=== PATIENT | male | born 1945 | race Caucasian/White ===

== ENCOUNTER 2018-04-17 20:19 | Emergency (ER) | payer OTHER ==
[2018-04-17 21:40] LABS: Urine Appearance Turbid
[2018-04-17] MEDS ORDERED: Levofloxacin TAB* 500 MG PO ONE (21:55)
--- NOTE | 2018-04-17 22:01 | ED ---
Sylvester Gonzalez Gabriel, scribed for Edmundo Reid MD on 04/17/18 at 2057 . GI/ HPI - HPI Summary HPI Summary: This patient is a 73 year old M presenting to [facility] accompanied by his partner with a chief complaint of urinary retention that began earlier today. Pt states he went hiking earlier and after this he began having episodes of hematuria with the last one occurring 30 minutes ago that was not a stream but instead a dribble of blood. He said he is unsure when the last time he produced only urine and states he hasnt drank much water today. The patient rates the pain 10/ 10 in severity. Patient reports diaphoresis, penile pain, SOB, and hematuria. Pt denies fever and n/v. Two weeks pt was dx with acute diverticulitis and a vesicocolic fistula and he is going to see the surgeon at the end of the week. 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 Pt sees Dr. Dotson regularly for his artificial penile sphincter and has provided his number. He is sweating and SOB secondary to pain. - History of Current Complaint Chief Complaint: EDUrogenitalProblems Time Seen by Provider: 04/17/18 20:33 Stated Complaint: ABD PAIN Hx Obtained From: Patient Onset/Duration: Started Hours Ago, Still Present Timing: Constant Severity: Mild Current Severity: Severe Pain Intensity: 10 Location of Pain: Other - bladder Additional Locations for Males: Penis Associated Signs and Symptoms: Positive: Other: - diaphoresis, penile pain, SOB , and hematuria. - Allergy/Home Medications Allergies/Adverse Reactions: Allergies Allergy/AdvReac Type Severity Reaction Status Date / Time No Known Allergies Allergy Verified 04/17/18 20:32 PMH/Surg Hx/FS Hx/Imm Hx GI History: Reports: Hx Diverticulosis - with fistula History: Reports: Hx Benign Prostatic Hyperplasia, Other Problems/ Disorders - artificial penile sphincter Neurological History: Denies: Hx CVA Infectious Disease History: No Infectious Disease History: Denies: Traveled Outside the [place] in Last 30 Days - Family History Known Family History: Positive: Hypertension Negative: Renal Disease, Seizure Disorder - Social History Lives: With Family Alcohol Use: None Hx Substance Use: No Substance Use Type: Reports: None Hx Tobacco Use: No Smoking Status (MU): Never Smoked Tobacco Review of Systems Positive: Skin Diaphoresis Positive: Shortness Of Breath Positive: hematuria, pain, urgency, other - retention All Other Systems Reviewed And Are Negative: Yes Physical Exam - Summary Physical Exam Summary: VITAL SIGNS: Reviewed. GENERAL: Patient is a well-developed and nourished male who is acute pain distress HEAD AND FACE: No signs of trauma. No ecchymosis, hematomas or skull depressions. No sinus tenderness. EYES: PERRLA, EOMI x 2, No injected conjunctiva, no nystagmus. EARS: Hearing grossly intact. Ear canals and tympanic membranes are within normal limits. MOUTH: Oropharynx within normal limits. NECK: Supple, trachea is midline, no adenopathy, no JVD, no carotid bruit, no c- spine tenderness, neck with full ROM. CHEST: Symmetric, no tenderness at palpation LUNGS: Clear to auscultation bilaterally. No wheezing or crackles. CVS: Regular rate and rhythm, S1 and S2 present, no murmurs or gallops appreciated. ABDOMEN: Soft, non-tender. No signs of distention. No rebound no guarding, and no masses palpated. Bowel sounds are normal. EXTREMITIES: FROM in all major joints, no edema, no cyanosis or clubbing. NEURO: Alert and oriented x 3. No acute neurological deficits. Speech is normal and follows commands. SKIN: very diaphoretic Bladder scan shows 21 ccs of urine. Triage Information Reviewed: Yes Vital Signs On Initial Exam: Initial Vitals Temp Pulse Resp BP Pulse Ox 97.5 F 92 24 170/142 100 04/17/18 20:27 04/17/18 20:27 04/17/18 20:27 04/17/18 20:27 04/17/18 20:27 Vital Signs Reviewed: Yes Procedures - Procedure Summary Procedure Summary: I deactivate the artificial sphincter using Dr. Jeffers instructions and the card the patient brought. Diagnostics - Vital Signs Vital Signs Temp Pulse Resp BP Pulse Ox 04/17/18 20:27 97.5 F 92 24 170/142 100 - Laboratory Lab Results: Lab Results 04/17/18 Range/Units 21:12 Urine Color Urine Appearance Turbid Urine pH Not Reportable Ur Specific [place] Not Reportable Urine Protein Not Reportable Urine Ketones Not Reportable Urine Blood Not Reportable Urine Nitrate Not Reportable Urine Bilirubin Not Reportable Urine Urobilinogen Not Reportable Ur Leukocyte Esterase Not Reportable Urine WBC (Auto) 3+(>20/hpf) A (Absent) Urine RBC (Auto) 3+(>10/hpf) A (Absent) Urine Bacteria 2+ A (Absent) Urine Glucose Not Reportable Urine Ascorbic Acid Not Reportable Lab Statement: Any lab studies that have been ordered have been reviewed, and results considered in the medical decision making process. Re-Evaluation - Re-Evaluation First Eval Re-Evaluation Time: 21:20 Change: Improved Comment: Pain has resolved after deflation of artificial sphincter and pt would like to go home Second Eval Re-Evaluation Time: 21:56 Change: Unchanged Comment: The patients urine is back and does show UTI which is consistent with vesicocolic fistula. Pt will be given one dose of levaquin in the ED and will discuss abx use with his urologist. Pt and his understand and agree. GIGU Course/Dx - Course Assessment/Plan: This patient is a 73 year old M presenting to [facility] accompanied by his partner with a chief complaint of urinary retention that began earlier today. Pt states he went hiking earlier and after this he began having episodes of hematuria with the last one occurring 30 minutes ago that was not a stream but instead a dribble of blood. He said he is unsure when the last time he produced only urine and states he hasnt drank much water today. The patient rates the pain 10/10 in severity. Patient reports diaphoresis, penile pain, SOB, and hematuria. Pt denies fever and n/v. Two weeks pt was dx with acute diverticulitis and a vesicocolic fistula and he is going to see the surgeon at the end of the week. 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 Pt sees Dr. Dotson regularly for his artificial penile sphincter and has provided his number. He is sweating and SOB secondary to pain. After the patients sphincter was adjusted all pain resolved and the patient voided brown urine. We discussed patient care with Dr. Dotson and they provided instructions on how to properly to deactivate the artificial device. Patient will be discharged with and follow up from Dr. Dotson. The patient is agreeable with this plan. - Diagnoses Provider Diagnoses: Penile pain - Physician Notifications Discussed Care Of Patient With: Horacio Dotson MD Time Discussed With Above Provider: 20:40 Instructed by Provider To: Other - We discussed patient care with Dr. Dotson and they provided instructions on how to properly to deactivate the artificial device. Discharge - Sign-Out/Discharge Documenting (check all that apply): Discharge/Admit/Transfer - Discharge Plan Condition: Stable Disposition: HOME Referrals: No Primary Care Phys,NOPCP [Primary Care Provider] - Additional Instructions: Please follow up with Dr. Zeyad ELIZABETH. RETURN TO THE ER FOR ANY NEW OR WORSENING SYMPTOMS - Billing Disposition and Condition Condition: STABLE Disposition: Home The documentation as recorded by the Sylvester bowser Gabriel accurately reflects the service I personally performed and the decisions made by , Edmundo Reid MD.
[2018-04-17 22:08] VITALS: BP 129/77
== END 2018-04-17 22:09 | disposition home or self-care (01) ==
LOC: ED 20:19
DX: N48.89 Other specified disorders of penis (principal); Z85.46 Personal history of malignant neoplasm of prostate; R31.9 Hematuria, unspecified; K57.90 Diverticulosis of intestine, part unspecified, without perforation or abscess without bleeding; N40.0 Benign prostatic hyperplasia without lower urinary tract symptoms; R32 Unspecified urinary incontinence; V00-Y99 External causes of morbidity; N39.0 Urinary tract infection, site not specified
CPT/HCPCS: 81003; 87086; 99283